=== PATIENT | female | born 1970 | race Caucasian/White ===

== ENCOUNTER → 2018-02-28 22:00 | Outpatient (CLI) | payer OTHER | END | disposition home or self-care (01) | LOC: D.MAMMO 14:30 | DX: Z12.31 Encounter for screening mammogram for malignant neoplasm of breast (principal) ==

== ENCOUNTER → 2018-03-20 16:51 | Outpatient (CLI) | payer OTHER | END | disposition home or self-care (01) | LOC: D.MAMMO 12:00 → D.US 03-28 11:00 → D.MAMMO 03-28 13:30 | DX: R92.8 Other abnormal and inconclusive findings on diagnostic imaging of breast (principal) ==

== ENCOUNTER 2019-05-22 08:00 | Outpatient (CLI) | payer OTHER | END 2019-05-22 11:00 | disposition home or self-care (01) | LOC: D.MAMMO 08:00 | PROVIDERS: ATTEND Internal Medicine | DX: Z12.31 Encounter for screening mammogram for malignant neoplasm of breast (principal) ==

== ENCOUNTER 2019-06-25 17:40 | Emergency (ER) | payer OTHER ==
[~2019-06-25] VITALS: Ht 162.6 cm; Wt 63.6 kg
[2019-06-25 18:06] VITALS: Ht 162.6 cm; Wt 63.6 kg
[2019-06-25] MEDS ORDERED: ESTRACE1 MG PO (18:08)
[2019-06-25] MEDS ORDERED: SOMA250 MG PO (18:09)
[2019-06-25] MEDS ORDERED: TYLENOL #4 W/CO1 TAB PO (18:09)
[2019-06-25] MEDS ORDERED: ZYRTEC10 MG PO (18:09)
[2019-06-25] MEDS ORDERED: PRAVACHOL20 MG PO (18:11)
[2019-06-25 18:31] LABS: BASOPHILS 0.3 % (0-2); EOSINOPHILS 1.6 % (0-7); HEMATOCRIT 40.8 % (36.0-48.0); HEMOGLOBIN 14.2 g/dL (12-16); IMMATURE GRANULOCYTES 0.1 % (0-5); LYMPHOCYTES 27.4 % (15-50); MCH 29.6 pg (26.0-34.0); MCHC 34.8 g/dL (31.0-37.0); MEAN PLATELET VOLUME 9.2 fL (7.4-10.4); MONOCYTES 7.8 % (2-11); NEUTROPHILS 62.8 % (40-80); PLATELET COUNT 337 10x3/uL (130-400); RDW 12.3 % (11.5-14.5); WBC 9.7 10x3/uL (4.8-10.8)
[2019-06-25] MEDS ORDERED: ALBUTEROL SULF8.5 GM INH (19:38)
[2019-06-25] MEDS ORDERED: VIBRAMYCIN 100100 MG PO (19:38)
[2019-06-25 20:30] VITALS: BP 137/86
== END 2019-06-25 20:34 | disposition home or self-care (01) ==
LOC: D.ER 17:40
PROVIDERS: Family Medicine
DX: J40 Bronchitis, not specified as acute or chronic (principal); J06.9 Acute upper respiratory infection, unspecified; R09.89 Other specified symptoms and signs involving the circulatory and respiratory systems